=== PATIENT | female | born 1955 | race Caucasian/White ===

== ENCOUNTER 2019-06-27 06:37 | Day surgery (SDC) | payer OTHER ==
[~2019-06-27] VITALS: Ht 154.9 cm; Wt 78.9 kg
[2019-06-27] MEDS ORDERED: fentaNYL 0.05 MG/ML VIAL ONE (07:34)
[2019-06-27] MEDS ORDERED: LIDOCAINE 2% 100 MG/5 ML UJET TP ONE (07:34)
[2019-06-27] MEDS ORDERED: MIDAZOLAM 2 MG/2 ML VIAL ONE (07:34)
[2019-06-27] MEDS ORDERED: MIDAZOLAM 2 MG/2 ML VIAL IVP ONE (08:25)
[2019-06-27] MEDS ORDERED: fentaNYL 0.05 MG/ML VIAL IVP ONE (08:25)
== END 2019-06-27 09:30 | disposition home or self-care (01) ==
LOC: MOR 06:37 → MMU 06:46 → MOR 09:30
PROVIDERS: ATTEND Internal Medicine Gastroenterology
DX: Z12.11 Encounter for screening for malignant neoplasm of colon (principal); K63.5 Polyp of colon; K57.30 Diverticulosis of large intestine without perforation or abscess without bleeding; E66.9 Obesity, unspecified; Z79.82 Long term (current) use of aspirin; Z79.899 Other long term (current) drug therapy
CPT/HCPCS: 45385; J2250; J3010